=== PATIENT | male | born 1950 | race Asian ===

== ENCOUNTER 2018-05-19 20:44 | Emergency (ER) | payer OTHER ==
[~2018-05-19] VITALS: Ht 170.2 cm; Wt 64.9 kg
[~2018-05-19 20:44] MED LIST: BENZTROPINE0.5 MG PO; CHOL100034 PO; D31000 UNI1 OR; D32000 UNIT OR; DIVALPROEX500 M1 OR; HALO50IN4 IM; HALO5INJ3; LEVO0.0218 PO; LORA1TAB17 PO; LORA2INJ21 INJ; MIRALAX3350 N1 PO; MULTIVITAMI1 OR; PHENYTOIN EX100 MG OR; PHENYTOIN EX100 MG PO; TRANSDERM-SC1.5 MG TD; ZIPR20CA PO; ZIPR20IN IM; ZIPR80CA PO
[2018-05-19 21:15] LABS: PLATELET COUNT 169 K/uL (142-355)
[2018-05-19 21:22] LABS: POTASSIUM 3.7 mmol/L (3.6-5.2)
[2018-05-19] MEDS ORDERED: BENZTROPINE0.5 MG PO (21:41)
[2018-05-19] MEDS ORDERED: MULTIVITAMI1 PO (21:43)
[2018-05-19] MEDS ORDERED: PANTOPRAZOLE 40MG TA PO (21:44)
[2018-05-19] MEDS ORDERED: RISP50IN IM (21:45)
[2018-05-19] MEDS ORDERED: SENNA LAX8.6 MG PO (21:46)
[2018-05-19] MEDS ORDERED: DIVA500T2 PO (21:47)
[2018-05-19] MEDS ORDERED: TYLENOL325 MG PO (21:48)
[2018-05-19] MEDS ORDERED: ROBINUL1 MG PO (21:49)
[2018-05-19] MEDS ORDERED: ENSURE PLUS PO (21:50)
[2018-05-19 22:12] VITALS: BP 121/53; TEMP 97.7
== END 2018-05-19 22:12 | disposition home or self-care (01) ==
LOC: ED 20:44
PROVIDERS: Internal Medicine
DX: R46.89 Other symptoms and signs involving appearance and behavior (principal); F32.89 Other specified depressive episodes; F41.8 Other specified anxiety disorders; I48.92 Unspecified atrial flutter; Z04.6 Encounter for general psychiatric examination, requested by authority
CPT/HCPCS: 36415; 80053; 85027; 93005; 99285